=== PATIENT | female | born 1940 | race Caucasian/White ===

== ENCOUNTER 2019-07-16 14:35 | Outpatient (CLI) | payer MEDICARE ==
[2019-07-16 17:48] LABS: CREATININE 0.7 mg/dL (0.4-1.0)
== END 2019-07-16 14:36 | disposition home or self-care (01) ==
LOC: LAB.S 14:35
PROVIDERS: ATTEND General Practice
DX: I10 Essential (primary) hypertension (principal); E03.9 Hypothyroidism, unspecified
CPT/HCPCS: 36415; 82565; 84132; 84443